=== PATIENT | male | born 1950 | race Caucasian/White ===

== ENCOUNTER 2016-09-15 07:58 | Emergency (ER) | payer OTHER ==
[~2016-09-15] VITALS: Ht 185.4 cm; Wt 95.2 kg
[~2016-09-15 07:58] MED LIST: ADVAIR 250/501 DISK IH; BACTRIM,SEPT1 TABLET PO; BREO ELLIPTA I1 EACH IH; CEFTIN500 MG PO; CHOLESTEROL MED PO; CLINDAMYCIN HC300 MG PO; DOXYCYCLINE MO100 M1 PO; IBUPROFEN600 MG PO; LOSARTAN POTASS50 MG PO; MOTRIN600 MG PO; NAPROXEN375 M1 PO; NICOTINE PATCH1 EAC2 TD; PERCOCET 5/31 TABLET PO; PERCOCET 7.51 TABLET PO; PRAVASTATIN SOD40 MG PO; PROVENTIL HFA6.7 GM IH; PROVENTIL,2.5 MG/3 M IH; SPIRIVA RESPIMAT4 GM IH; SPIRIVA1 INHALATI IH; SYMBICORT60 INHALAT IH; TAMSULOSIN HCL0.4 MG PO; TRAMADOL HCL50 MG PO; TRAMADOL PO; VALIUM2 MG PO; VENTOLIN HFA18 GM IH
[2016-09-15 09:12] LABS: HEMATOCRIT 46.4 % (38.0-50.0); MCH 31.4 PG (29.0-34.0); MCV 95.1 FL (86-99); PLATELET COUNT 277 K/uL (156-360); RBC DIS.WIDTH-CV 12.4 % (11.8-14.6); RBC DIS.WIDTH-SD 43.3 % (39-53); RED BLOOD COUNT 4.88 M/uL (4.00-5.50); WHITE BLOOD COUNT 10.4 K/uL (4.1-10.2)
[2016-09-15 09:24] LABS: CHLORIDE 106 mEq/L (99-109)
[2016-09-15 09:25] LABS: POTASSIUM 3.8 mEq/L (3.7-5.4); SODIUM 140 mEq/L (136-147)
[2016-09-15 09:27] LABS: GLUCOSE 124 mg/dL (70-99)
[2016-09-15 09:28] LABS: ANION GAP 7 MEQ/L (2-14)
[2016-09-15 09:29] LABS: TOTAL BILIRUBIN 0.4 mg/dL (0.0-1.0)
[2016-09-15 09:30] LABS: ALKALINE PHOSPHATASE 114 IU/L (3-129); GFR ESTIMATE (CALCULATED) > 59 mL/min/
[2016-09-15 09:32] LABS: UREA NITROGEN (BUN) 11 mg/dL (9-23)
[2016-09-15 10:49] LABS: ADD MIUA? YES; BILIRUBIN NEGATIVE; BLOOD SMALL; COLOR YELLOW ((YELLOW)); GLUCOSE (STRIP) NEGATIVE; KETONES NEGATIVE; LEUKOCYTES NEGATIVE; NITRITE NEGATIVE; PROTEIN (STRIP) NEGATIVE; SPECIFIC GRAVITY 1.027 (1.000-1.030); UROBILINOGEN 0.2 MG/DL (0.2-1.0)
[2016-09-15 11:08] LABS: BACTERIA RARE /HPF; EPITHELIAL CELLS RARE /HPF; MUCUS 2+ /LPF; RED BLOOD CELLS 0-5 /HPF (0-5); UCUL ADDED? NO; WHITE BLOOD CELLS 0-5 /HPF (0-5)
[2016-09-15] MEDS ORDERED: TAMSULOSIN HCL0.4 MG PO (11:11)
[2016-09-15 11:28] VITALS: BP 117/75
== END 2016-09-15 11:28 | disposition home or self-care (01) ==
LOC: EME 07:58
DX: K59.00 Constipation, unspecified (principal); J44.9 Chronic obstructive pulmonary disease, unspecified; J45.909 Unspecified asthma, uncomplicated; H91.90 Unspecified hearing loss, unspecified ear; Z86.14 Personal history of Methicillin resistant Staphylococcus aureus infection; F17.200 Nicotine dependence, unspecified, uncomplicated
CPT/HCPCS: 74022; 80053; 81003; 85027; 93005; 94640; 99281; 99284